=== PATIENT | female | born 1990 | race Caucasian/White ===

== ENCOUNTER 2016-07-29 14:03 | Emergency (ER) | payer OTHER ==
--- NOTE | 2016-07-29 14:19 | EDPHY ---
H & P Time Seen by Provider: 07/29/16 14:17 HPI/ROS: CHIEF COMPLAINT: Right elbow injury HISTORY OF PRESENT ILLNESS: The patient presents to the ED with complaints of right elbow pain and swelling after she fell while skiing. The patient denies head injury, neck pain, chest pain, back pain, shortness of breath or additional extremity complaints. She has no associated numbness or weakness. She has moderate to severe pain with movement. The patient does have a history of spina bifida and does self-catheterize. The patient takes no anti-platelet or anticoagulant medications. REVIEW OF SYSTEMS: A comprehensive 10 point review of systems is otherwise negative aside from elements mentioned in the history of present illness. Source: Patient Exam Limitations: No limitations - Medical/Surgical History PMH: Past medical history: Spina bifida - Family History Significant Family History: No pertinent family hx - Social History Smoking Status: Never smoked - Physical Exam Exam: General Appearance: Alert, no distress Head: Atraumatic Eyes: Pupils equal, round, reactive ENT, Mouth: No hemotympanum, no oral trauma Neck: Nontender, trachea midline Respiratory: No chest wall tender, subcutaneous air, lungs clear bilaterally Cardiovascular: Regular rate and rhythm Abdomen: Abdomen is soft and nontender, pelvis stable Skin: No lacerations, No abrasion Back: No midline T/L/S pain Extremities: Tenderness, soft tissue swelling, decreased range of motion noted at the right elbow. 2+ radial and ulnar pulse. Sensation intact to light touch throughout the right upper extremity. Remainder of musculoskeletal examination unremarkable Neurological: GCS 15 Constitutional: Initial Vital Signs Temperature (C) 36.7 C 07/29/16 14:03 Heart Rate 79 07/29/16 14:03 Respiratory Rate 16 07/29/16 14:03 Blood Pressure 115/67 07/29/16 14:03 O2 Sat (%) 96 07/29/16 14:03 O2 Delivery Mode Room Air Allergies/Adverse Reactions: latex Allergy (Verified 07/29/16 14:26) Home Medications: Medication Instructions Recorded Hydrocodone/APAP 5/325 [Vernalis 1 - 2 each PO Q6 PRN #20 tab 07/29/16 5/325] Medical Decision Making - Diagnostics Imaging: Right elbow x-ray: Images reviewed by myself: Negative for acute fracture or dislocation. Also reviewed with radiologist Dr. Mosquera Procedures: Procedure: Splint placement. A posterior Ortho Glass splint was applied to the right upper extremity by the tech. After application of the splint I returned and re-examined the patient. The splint was adequately immobilizing the joint and distal to the splint the patient's circulation and sensation was intact. ED Course/Re-evaluation: The patient received an IM dose of narcotics by paramedics prior to arrival. She arrived via ambulance and was evaluated by myself at 2:15 p.m.. She appears to have injuries isolated to the right elbow. Right elbow x-ray demonstrates no evidence of a fracture, dislocation or joint effusion. The patient is having some difficulty fully extending her elbow. I cannot fully exclude the possibility of a triceps tendon injury. The patient will be placed into a long-arm posterior splint. She will follow up with our on -call orthopedic surgeon for a recheck on Sunday. Given the amount of soft tissue swelling, it is certainly possible that patient had a elbow dislocation which reduced prior to arrival. The patient was re- evaluated by myself at 3:20 p.m.. She continues to be neurologically intact. Differential Diagnosis: Differential diagnosis considered includes fracture, sprain, dislocation, neurovascular injury Departure - Departure Disposition: Home, Routine, Self-Care Clinical Impression: Injury of elbow, right Condition: Good Instructions: Elbow Sprain (ED) Additional Instructions: 1. There is no evidence of a obvious fracture or dislocation on noted on the x- ray today. 2. I cannot exclude the possibility of a tendon injury. We will place you in a splint. 3. You have been referred to our on-call orthopedic surgeon for further evaluation of your elbow injury. Please contact their office on Sunday to schedule a follow-up visit. 4. Take Ibuprofen or Motrin 600 mg by mouth three times a day. 5. Vernalis as needed for severe pain. Referrals: Eduardo Alston MD [Medical Doctor] - As per Instructions Prescriptions: Hydrocodone/APAP 5/325 [Vernalis 5/325] 1 - 2 each PO Q6 PRN #20 tab PRN Reason: for pain
[2016-07-29 14:31] VITALS: O2SAT 96
--- NOTE | 2016-07-29 15:05 | DX ---
Right Elbow, Three Views History: Pain post trauma. Skiing injury. Patient cannot extend elbow. Findings: No posterior fat pad sign is present. No fracture, arthritis or malalignment is identified . Impression: No source for symptoms identified. Results reviewed with Dr. Herrera Whittington.
[2016-07-29 15:44] VITALS: BP 118/64; PULSE 82; RESP 18; TEMP 98.6
== END 2016-07-29 15:43 | disposition home or self-care (01) ==
DX: S59.901A Unspecified injury of right elbow, initial encounter (principal); Z91.040 Latex allergy status; V00.321A Fall from snow-skis, initial encounter; Y99.8 Other external cause status; Y93.24 Activity, cross country skiing

== ENCOUNTER 2018-05-23 23:05 | Emergency (ER) | payer OTHER, MEDICAID ==
[2018-05-23] MEDS ORDERED: NS 1,000 ML IV ONE (23:21)
--- NOTE | 2018-05-23 23:24 | EDPHY ---
H & P Stated Complaint: migraine Time Seen by Provider: 05/23/18 23:23 HPI/ROS: HPI CHIEF COMPLAINT: Nausea, headache, dizziness, did not eat today HISTORY OF PRESENT ILLNESS: This is a 28-year-old female she does have a history of spina bifida, she is wheelchair-bound, neurogenic bladder and self caths, [employer] shunt, presents emergency room from [facility]. She was in a seated position in a wheelchair she got nauseous and dizzy. She describes as room spinning. She vomited 1 time. Did not have any chest pain or shortness of breath does complain of a frontal headache. This does not typically happen for her. She denies chest pain or shortness of breath. She arrived by EMS. No acute distress. Does states she feels somewhat better. Main complaint nausea. She typically does eat however today she did not have anything to eat she drank clear fluids. Past Medical History: Spina bifida, neurogenic bladder, wheelchair-bound, [employer] shunt, self caths. Past Surgical History: [employer] shunt. Social History: Denies drugs alcohol tobacco. Mom and dad at bedside. Family History: Noncontributory ROS REVIEW OF SYSTEMS: 10 Systems were reviewed and negative with the exception of the elements mentioned in the history of present illness. Exam Constitutional nontoxic appearing, triage nursing summary reviewed, vital signs reviewed, awake/alert. Eyes normal conjunctivae and sclera, EOMI, PERRLA. HENT normal inspection, atraumatic, moist mucus membranes, no epistaxis, neck supple/ no meningismus, no raccoon eyes. Respiratory clear to auscultation bilaterally, normal breath sounds, no respiratory distress, no wheezing. Cardiovascular rate normal, regular rhythm, no murmur, no edema, distal pulses normal. Gastrointestinal soft, non-tender, no rebound, no guarding, normal bowel sounds, no distension, no pulsatile mass. Genitourinary no CVA tenderness. Musculoskeletal no midline vertebral tenderness, full range of motion, no calf swelling, no tenderness of extremities, no meningismus, good pulses, neurovascularly intact. Skin pink, warm, & dry, no rash, skin atraumatic. Neurologic nonfocal neurological exam, awake, alert and oriented x 3, AAOx3, moves all 4 extremities equally, motor intact, sensory intact, CN II-XII intact , normal cerebellar, normal vision, normal speech. Psychiatric normal mood/affect. Heme/Lymph/Immune no lymphadenopathy. Differential Diagnosis: Includes but is not limited to in a particular order dehydration electrolyte disturbance, cardiac arrhythmia, intracranial bleed, malfunction [employer] shunt, migraine headache, hypoglycemia Medical Decision Making: Plan for this patient IV establishment IV fluid bolus , Zofran for nausea, EKG, basic electrolytes, UA, test, CT scan head without contrast due to [employer] shunt. Re-evaluate. Re-evaluation: EKG interpretation by me on record in [employer] system. Impression time of EKG 2338, sinus rhythm rate of 68 T-wave abnormality V1 V2. Otherwise unremarkable EKG. Radiology called me about this patient's CT scan this shows an abnormal CT imaging of her brain with tonsillar ectopy, concerning for intra cranial hypotension Spoke with Dr. Smith with Neurosurgery discussed the case in detail. Discussed her imaging. Dr. Smith believes that this is chronic. This is nonacute process. Does not believe that her symptoms are caused by the current imaging on her CT scan. Patient's urinalysis concerning for infection. She does self cath. However patient and mom refuse IV antibiotics. I was able to obtain records from [facility] however these records are from when she was 19 years of age. The date of this records 06/22/2009 she was seen there in the emergency room for seizures. Was discharged worked up outpatient. At that time she has shunt series that was really unremarkable and she had a CT scan brain without contrast that showed left posterior parietal shunt catheter. Chiari malformation. Slit-like ventricles. But does not comment on the comments that were seen on CT scan today. Long discussion with the patient as well as mom bedside. Agree for antibiotics for urine. Urine culture sent. 1 g Rocephin ordered. Obtaining CT scan from [facility] that was the most recent CT scan of her head. I was able to obtain the CT scan head report from [facility]. Date is report 06/22/2014. This shows a left parietal ventricular peritoneal shunt slit -like ventricles CT detail reveals corpus callosal dysgenesis, volume loss of the left medial occipital lobe consistent with likely prior injury possible congenital intrauterine injury abnormal or deformed of the posterior fossa marked widening foramen mangnum, in a patterns most suggestive of chiari ii Malformation. 0222: Patient re-evaluated this time has a normal neurological exam. She states her headache is resolved. 0226: I spoke with Neurosurgery Colleen Hendricks, discussed the case in detail. I discussed her CT imaging report from 2013 at [facility] compared her CT imaging report today in the ER. 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 I I discussed the CT report today at [facility] and based on the description of the protrusion of the cerebellar tonsils through the foramen magnum with high-grade crowding compression of the brainstem related to the Chiari Malformation. However no old studies to compare. 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 Follow up outpatient. I did ask Dr. Smith if I need to admit her overnight for observation however she states that she does not feel the patient needs to be admitted. Feels comfortable the patient going home. I updated the patient and mom they would like to go home. They are eager for discharge I did discussed return precautions with them return emergency room if worsening headache, vomiting, not doing well. At 2:30 a.m. The patient has no headache and feels well. Normal neurological exam. 2:42 a.m.. Patient neurological exam remains unremarkable she is laughing in bed with mom she is eager for discharge. Return precautions discussed. Keflex prescription provided. Return if worse. Mom and patient understand eager for discharge. Source: Patient - Personal History Current Tetanus/Diphtheria Vaccine: Yes Current Tetanus Diphtheria and Acellular Pertussis (TDAP): Yes Tetanus Vaccine Date: 2016 - Medical/Surgical History Hx Asthma: No Hx Chronic Respiratory Disease: No Hx Diabetes: No Hx Cardiac Disease: No Hx Renal Disease: No Hx Cirrhosis: No Hx Alcoholism: No Hx HIV/AIDS: No Hx Splenectomy or Spleen Trauma: No Other PMH: SPINABIFIDA, [employer] SHUNT,SELF CATH, VANI, BACK SURGERY. MIGRAINE - Social History Smoking Status: Never smoked Constitutional: Initial Vital Signs Temperature (C) 36.8 C 05/23/18 23:05 Heart Rate 77 05/23/18 23:05 Respiratory Rate 16 05/23/18 23:05 Blood Pressure 143/74 H 05/23/18 23:05 O2 Sat (%) 95 05/23/18 23:05 O2 Delivery Mode Room Air Allergies/Adverse Reactions: latex Allergy (Verified 05/23/18 23:13) Home Medications: Medication Instructions Recorded Cephalexin [Keflex] 500 mg PO Q6H #28 cap 05/24/18 Medical Decision Making - Diagnostics Imaging Results: Imaging Impressions Chest X-Ray 05/23/18 23:22 Impression: No evidence of pneumonia or pleural effusion. Head CT 05/23/18 23:22 Impression: 1. Significant protrusion of the cerebellar tonsils through the foramen magnum with high-grade crowding/compression of the brainstem may be related to Chiari malformation, however, acquired tonsillar ectopia and intracranial hypotension from possible overdraining CSF cannot be radiographically excluded given no prior studies available for comparison. These findings were discussed with Fredy Avila by telephone at 11:58 PM on . - Data Points Laboratory Results: Laboratory Results 05/23/18 23:15 05/23/18 23:15 05/23/18 05/23/18 05/23/18 23:50 23:29 23:15 WBC RBC Hgb Hct MCV MCH MCHC RDW Plt Count MPV Neut % (Auto) Lymph % (Auto) [place] % (Auto) Eos % (Auto) Baso % (Auto) Nucleat RBC Rel Count Absolute Neuts (auto) Absolute Lymphs (auto) Absolute Monos (auto) Absolute Eos (auto) Absolute Basos (auto) Absolute Nucleated RBC Immature Gran % Immature Gran # PT INR APTT Sodium Potassium Chloride Carbon Dioxide Anion Gap BUN Creatinine Estimated GFR Glucose Calcium Magnesium Total Bilirubin Conjugated Bilirubin Unconjugated Bilirubin AST ALT Alkaline Phosphatase POC Troponin I 0.00 ng/mL ng/mL (0.00-0.08) NT-Pro-B Natriuret Pep Total Protein Albumin Lipase Beta HCG, Qual NEGATIVE Urine Color YELLOW Urine Appearance MODERATELY TURBID Urine pH 5.0 (5.0-7.5) Ur Specific [place] 1.024 (1.002-1.030) Urine Protein 2+ H (NEGATIVE) Urine Ketones 2+ H (NEGATIVE) Urine Blood 3+ H (NEGATIVE) Urine Nitrate NEGATIVE (NEGATIVE) Urine Bilirubin NEGATIVE (NEGATIVE) Urine Urobilinogen NEGATIVE EU EU (0.2-1.0) Ur Leukocyte Esterase 3+ H (NEGATIVE) Urine RBC 25-50 /hpf H /hpf (0-3) Urine WBC 50-182 /hpf H /hpf (0-3) Ur Epithelial Cells TRACE /lpf /lpf (NONE-1+) Urine Bacteria 4+ /hpf H /hpf (NONE SEEN) Urine Mucus 4+ /lpf H /lpf (NONE-1+) Urine Glucose 1+ H (NEGATIVE) 05/23/18 05/23/18 05/23/18 23:15 23:15 23:15 WBC 9.45 10^3/uL 10^3/uL (3.80-9.50) RBC 5.03 10^6/uL 10^6/uL (4.18-5.33) Hgb 14.6 g/dL g/dL (12.6-16.3) Hct 42.0 % % (38.0-47.0) MCV 83.5 fL fL (81.5-99.8) MCH 29.0 pg pg (27.9-34.1) MCHC 34.8 g/dL g/dL (32.4-36.7) RDW 13.5 % % (11.5-15.2) Plt Count 447 10^3/uL H 10^3/uL (150-400) MPV 9.2 fL fL (8.7-11.7) Neut % (Auto) 67.4 % % (39.3-74.2) Lymph % (Auto) 26.1 % % (15.0-45.0) [place] % (Auto) 5.8 % % (4.5-13.0) Eos % (Auto) 0.2 % L % (0.6-7.6) Baso % (Auto) 0.3 % % (0.3-1.7) Nucleat RBC Rel Count 0.0 % % (0.0-0.2) Absolute Neuts (auto) 6.36 10^3/uL 10^3/uL (1.70-6.50) Absolute Lymphs (auto) 2.47 10^3/uL 10^3/uL (1.00-3.00) Absolute Monos (auto) 0.55 10^3/uL 10^3/uL (0.30-0.80) Absolute Eos (auto) 0.02 10^3/uL L 10^3/uL (0.03-0.40) Absolute Basos (auto) 0.03 10^3/uL 10^3/uL (0.02-0.10) Absolute Nucleated RBC 0.00 10^3/uL 10^3/uL (0-0.01) Immature Gran % 0.2 % % (0.0-1.1) Immature Gran # 0.02 10^3/uL 10^3/uL (0.00-0.10) PT 13.1 SEC SEC (12.0-15.0) INR 0.97 (0.83-1.16) APTT 25.2 SEC SEC (23.0-38.0) Sodium 142 mEq/L mEq/L (135-145) Potassium 3.4 mEq/L mEq/L (3.3-5.0) Chloride 111 mEq/L H mEq/L (97-110) Carbon Dioxide 20 mEq/l L mEq/l (22-31) Anion Gap 11 mEq/L mEq/L (6-14) BUN 12 mg/dL mg/dL (7-23) Creatinine 0.4 mg/dL L mg/dL (0.6-1.0) Estimated GFR > 60 Glucose 131 mg/dL H mg/dL (70-100) Calcium 9.4 mg/dL mg/dL (8.5-10.4) Magnesium 2.1 mg/dL mg/dL (1.6-2.3) Total Bilirubin 0.6 mg/dL mg/dL (0.1-1.4) Conjugated Bilirubin 0.2 mg/dL mg/dL (0.0-0.5) Unconjugated Bilirubin 0.4 mg/dL mg/dL (0.0-1.1) AST 20 IU/L IU/L (14-46) ALT 35 IU/L IU/L (9-52) Alkaline Phosphatase 64 IU/L IU/L (38-126) POC Troponin I NT-Pro-B Natriuret Pep 62 pg/mL pg/mL (0-125) Total Protein 7.2 g/dL g/dL (6.3-8.2) Albumin 4.3 g/dL g/dL (3.5-5.0) Lipase 109 IU/L IU/L (23-300) Beta HCG, Qual Urine Color Urine Appearance Urine pH Ur Specific [place] Urine Protein Urine Ketones Urine Blood Urine Nitrate Urine Bilirubin Urine Urobilinogen Ur Leukocyte Esterase Urine RBC Urine WBC Ur Epithelial Cells Urine Bacteria Urine Mucus Urine Glucose Medications Given: Discontinued Medications Sodium Chloride (Ns) 1,000 mls @ 0 mls/hr IV EDNOW ONE; Wide Open PRN Reason: Protocol Stop: 05/23/18 23:22 Last Admin: 05/23/18 23:29 Dose: 1,000 mls Ceftriaxone Sodium/Dextrose (Rocephin 1 Gm (Premix)) 50 mls @ 100 mls/hr IV EDNOW ONE PRN Reason: Protocol Stop: 05/24/18 00:39 Last Admin: 05/24/18 01:08 Dose: 50 mls Point of Care Test Results: Chemistry 05/23/18 23:29 POC Troponin I 0.00 ng/mL ng/mL (0.00-0.08) Departure - Departure Disposition: Home, Routine, Self-Care Clinical Impression: Headache Qualifiers: Headache type: unspecified Headache chronicity pattern: acute headache Intractability: not intractable Qualified Code(s): R51 - Headache UTI (urinary tract infection) Qualifiers: Urinary tract infection type: acute cystitis Hematuria presence: without hematuria Qualified Code(s): N30.00 - Acute cystitis without hematuria Condition: Good Instructions: Urinary Tract Infection in Women (ED), Acute Headache (ED), Near Syncope (ED) Additional Instructions: 1. Return emergency room if there is worsening symptoms including worsening headache, vomiting, not doing well. 2. Drink lots of fluids stay well-hydrated 3. Antibiotics as prescribed Referrals: Patient,NotPresent [Unknown] - As per Instructions Colleen Smith DO [Doctor of Osteopathy] - As per Instructions Prescriptions: Cephalexin [Keflex] 500 mg PO Q6H #28 cap
[2018-05-23 23:30] LABS: PLATELET COUNT 447 10^3/uL (150-400)
[2018-05-23 23:38] LABS: INR 0.97 (0.83-1.16); PROTIME(PATIENT) 13.1 SEC (12.0-15.0)
[2018-05-24 02:28] VITALS: BP 128/86
--- NOTE | 2018-05-25 06:16 | CPEKG ---
Test Reason : OPEN Blood Pressure : / mmHG Vent. Rate : 068 BPM Atrial Rate : 067 BPM P-R Int : 114 ms QRS Dur : 091 ms QT Int : 422 ms P-R-T Axes : 040 051 019 degrees QTc Int : 449 ms Sinus rhythm Borderline T abnormalities, anterior leads Confirmed by Sanford Sandoval ([id number]) on 05/25/2018 6:16:09 AM Referred By: Confirmed By:Sanford Sandoval
== END 2018-05-24 03:03 | disposition home or self-care (01) ==
LOC: EDUNIT#
DX: R51 Headache (principal); N30.00 Acute cystitis without hematuria; E86.9 Volume depletion, unspecified; Q05.9 Spina bifida, unspecified; N31.9 Neuromuscular dysfunction of bladder, unspecified; Z98.2 Presence of cerebrospinal fluid drainage device; Z99.3 Dependence on wheelchair
CPT/HCPCS: 70450; 71045; 93005; 96361; 96365; 99285; J0696; 84484-PO